=== PATIENT | female | born 1980 | race Two or more races ===

== ENCOUNTER 2017-09-14 16:55 | Emergency (ER) | payer MEDICAID ==
[2017-09-14 17:00] VITALS: O2SAT 98
--- NOTE | 2017-09-14 17:57 | EDPHY ---
H & P Time Seen by Provider: 09/14/17 17:08 HPI/ROS: CHIEF COMPLAINT: Medical clearance for longterm, left elbow pain HISTORY OF PRESENT ILLNESS: 37-year-old female brought in to the emergency department in police custody presents for medical clearance for longterm. The patient has been having left elbow pain. The patient was at work and states that she may have overdone it. She states that she just broke her elbow a few months ago. She did not follow up with orthopedic surgeon. She is right-hand dominant. Denies any other new reported trauma. Denies numbness or tingling in her upper lower extremities. Denies abdominal pain. REVIEW OF SYSTEMS: Constitutional: No fever, no chills. Eyes: No double or blurry vision. ENT: No sore throat. Respiratory: No cough, no shortness of breath. Cardiac: No chest pain. Gastrointestinal: No abdominal pain, vomiting or diarrhea. Genitourinary: No dysuria. Musculoskeletal: No neck or back pain. Skin: No rashes. Neurological: No headache. Past Medical/Surgical History: Left coronoid process fracture Social History: Single and lives in [place] Smoking Status: Never smoked Physical Exam: General Appearance: Alert, no distress. Eyes: Pupils equal and round. Extraocular motions are all intact. ENT: Mouth: Mucous membranes moist. Respiratory: No wheezing, rhonchi, or rales, lungs are clear to auscultation. Cardiovascular: Regular rate and rhythm. Gastrointestinal: Abdomen is soft and nontender, no masses, no rebound or guarding, bowel sounds normal. Neurological: Alert and oriented x 3, cranial nerves II through XII grossly intact Skin: Warm and dry, no rashes. Musculoskeletal: Nontender to palpate along the cervical, thoracic or lumbar spine. Neck is supple. Extremities: Unable to fully extend her left elbow. No obvious deformity. No redness or warmth or signs of infection. Mildly tender to palpate over the left olecranon. Psychiatric: Patient is oriented X 3, there is no agitation. Constitutional: Initial Vital Signs Temperature (C) 37 C 09/14/17 16:57 Heart Rate 68 09/14/17 16:57 Respiratory Rate 18 09/14/17 16:57 Blood Pressure 147/103 H 09/14/17 16:57 O2 Sat (%) 98 09/14/17 16:57 O2 Delivery Mode Room Air Allergies/Adverse Reactions: No Known Allergies Allergy (Unverified 09/14/17 16:56) Home Medications: Medication Instructions Recorded NK [No Known Home Meds] 09/14/17 Medical Decision Making - Diagnostics Imaging Results: No acute fractures noted in the left elbow. This is reviewed by myself the PAC system. She has what appears to be an old coronoid process fracture. Radiology interpretation to follow. Imaging: I viewed and interpreted images myself ED Course/Re-evaluation: 37-year-old female presents for medical clearance for longterm. She is having left elbow pain. She broke her elbow few months ago and never followed up with orthopedic surgeon. She now is unable to fully extend her left elbow. No other new trauma reported. X-rays were obtained which reveal possible old fracture of the left coronoid process. No new fractures noted. Patient was given orthopedic referral. I do not think immobilization is necessary. She has no new trauma. She likely has decreased range of motion which is chronic for her since her original injury few months ago. Differential Diagnosis: Including but not limited to fracture, sprain, contusion, cellulitis Departure - Departure Disposition: Law Enforcement/Court/Prison Clinical Impression: History of left elbow fracture Condition: Good Instructions: Elbow Sprain (ED) Additional Instructions: You should follow up with orthopedic surgeon to discuss possible physical therapy regarding her ongoing chronic pain in her left elbow. He did not have any new fractures on x-ray today. MED CLEAR FOR ASSISTED. Referrals: Wicho Diallo MD [Medical Doctor] - 2-3 days, call for appt. (Orthopedic surgeon on-call)
[2017-09-14 18:23] VITALS: BP 138/74; PULSE 85; RESP 16; TEMP 98.2
== END 2017-09-14 18:21 ==
LOC: EDSEX 16:55
DX: Z87.81 Personal history of (healed) traumatic fracture (principal)